=== PATIENT | male | born 1980 | race Caucasian/White ===

== ENCOUNTER 2022-11-02 12:30 | Emergency (ER) | payer SELFPAY ==
[2022-11-02 12:36] VITALS: BP 141/91; PULSE 83; RESP 18; TEMP 36.6; O2SAT 95; BMI 23.7
--- NOTE | 2022-11-02 12:38 | XR_ITS ---
The [address] [address] Patient Name: FABBY CAMPOS MRN: [id number] date: 1980 Sex: M Assigned Patient Location: ER Current Patient Location: ER Accession/Order Number: [id number] Exam Date: 11/02/2022 12:50 Report Date: 11/02/2022 13:28 At the request of: JAZMINE BETANCUR Procedure: XR wrist RT min 3V EXAM: XR wrist RT min 3V HISTORY: Right wrist injury c/o pain COMPARISON: None. TECHNIQUE: 3 views right wrist. FINDINGS: No fracture or dislocation. No significant soft tissue swelling and edema. Degenerative cystic change at the scaphoid. No erosions or chondrocalcinosis. XR/XR wrist RT min 3V IMPRESSION: No acute process right wrist. Electronically authenticated by: ANTONY NEELY Date: 11/02/2022 13:28
--- NOTE | 2022-11-02 12:38 | XR_ITS ---
The [address] [address] Patient Name: FABBY CAMPOS MRN: [id number] date: 1980 Sex: M Assigned Patient Location: ER Current Patient Location: ER Accession/Order Number: [id number] Exam Date: 11/02/2022 12:50 Report Date: 11/02/2022 13:27 At the request of: JAZMINE BEATNCUR Procedure: XR hand RT min 3V EXAM: XR hand RT min 3V HISTORY: injury c/o pain COMPARISON: None. TECHNIQUE: 3 views right hand. FINDINGS: No acute fracture or dislocation. Minimal chronic appearing deformity at the base of the fifth metacarpal. No significant soft tissue swelling or edema. No radiopaque foreign body. XR/XR hand RT min 3V IMPRESSION: No acute process right hand. Electronically authenticated by: ANTONY NEELY Date: 11/02/2022 13:27
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
== END 2022-11-02 13:59 | disposition home or self-care (01) ==
PROVIDERS: Emergency Provider Emergency Medicine
DX: S67.41XA Crushing injury of right wrist and hand, initial encounter (principal); V09.09XA Pedestrian injured in nontraffic accident involving other motor vehicles, initial encounter
CPT/HCPCS: 73110; 73130; 99284

== ENCOUNTER 2022-11-07 12:20 | Emergency (ER) | payer SELFPAY ==
[2022-11-07 12:28] VITALS: BP 139/89; PULSE 67; RESP 20; TEMP 36.7; O2SAT 97; BMI 25.1
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
== END 2022-11-07 12:50 | disposition home or self-care (01) ==
PROVIDERS: Emergency Provider Emergency Medicine Emergency Medical Services
DX: S67.21XD Crushing injury of right hand, subsequent encounter (principal); W23.0XXD Caught, crushed, jammed, or pinched between moving objects, subsequent encounter
CPT/HCPCS: 99283